=== PATIENT | male | born 2000 | race Caucasian/White ===

== ENCOUNTER 2019-01-21 01:08 | Day surgery (SDC) | payer BC ==
[2019-01-21] MEDS ORDERED: fentaNYL* 50 MCG/ML 2 ML VIAL (100 MCG VIAL) IV SLOW PU ONE (02:23)
[2019-01-21] MEDS ORDERED: Metoclopramide IV* 5 MG/ML 2 ML VIAL IV SLOW PU ONE (02:23)
[2019-01-21] MEDS ORDERED: NS 0.9% 1000 ML** 1,000 ML IV ONE (02:23)
--- NOTE | 2019-01-21 02:26 | ED ---
Abdominal Pain/Male - HPI Summary HPI Summary: Patient is a 18 y/o M presenting to ED with complaints of sharp lower abdominal pain that is more severe at the RLQ. He states that pain onset eight hours ago, he denies constipation, N/V/D. Pain is still present. PMHx of collapsed lung x2 , no FMHx of HTN or diabetes. On triage, pain is rated 7/10 and it is noted that he took pepto-bismol DIRECTOR NICU. Home medications and allergies are reviewed. - History of Current Complaint Chief Complaint: EDAbdPain Stated Complaint: "SEVERE ABD PAIN FOR 8+ HRS" PER PT Time Seen by Provider: 01/21/19 02:15 Hx Obtained From: Patient Onset/Duration: Lasting Hours - eight hours, Still Present Timing: Constant, Lasting Hours - eight hours Severity Currently: Severe - 7/10 Pain Intensity: 7 Pain Scale Used: 0-10 Numeric - 7/10 Location: Other - lower abd Aggravating Factor(s): Nothing Alleviating Factor(s): Nothing Associated Signs And Symptoms: Negative: Fever, Constipation, Nausea, Vomiting, Diarrhea - Allergies/Home Medications Allergies/Adverse Reactions: Allergies Allergy/AdvReac Type Severity Reaction Status Date / Time morphine Allergy Unknown Verified 01/21/19 01:17 Reaction Details Home Medications: Home Medications NK [No Home Medications Reported] 01/21/19 [History Confirmed 01/21/19] PMH/Surg Hx/FS Hx/Imm Hx Respiratory History: Reports: Other Respiratory Problems/Disorders - collapsed lung x2 Sensory History: Denies: Hx Legally Blind, Hx Deafness Opthamlomology History: Denies: Hx Legally Blind EENT History: Denies: Hx Deafness Infectious Disease History: No Infectious Disease History: Denies: Traveled Outside the [place] in Last 30 Days - Family History Known Family History: Negative: Hypertension, Diabetes - Social History Alcohol Use: None Substance Use Type: Reports: None Smoking Status (MU): Never Smoked Tobacco Review of Systems Negative: Fever Gastrointestinal: Other - NEGATIVE - CONSTIPATION Positive: Abdominal Pain. Negative: Vomiting, Diarrhea, Nausea All Other Systems Reviewed And Are Negative: Yes Physical Exam - Summary Physical Exam Summary: VITAL SIGNS: Reviewed. GENERAL: Patient is a well-developed and nourished male who is lying comfortable in the stretcher. Patient is not in any acute respiratory distress. HEAD AND FACE: No signs of trauma. No ecchymosis, hematomas or skull depressions. No sinus tenderness. EYES: PERRLA, EOMI x 2, No injected conjunctiva, no nystagmus. EARS: Hearing grossly intact. Ear canals and tympanic membranes are within normal limits. MOUTH: Oropharynx within normal limits. NECK: Supple, trachea is midline, no adenopathy, no JVD, no carotid bruit, no c- spine tenderness, neck with full ROM. CHEST: Symmetric, no tenderness at palpation LUNGS: Clear to auscultation bilaterally. No wheezing or crackles. CVS: Regular rate and rhythm, S1 and S2 present, no murmurs or gallops appreciated. ABDOMEN: Soft, RLQ tenderness. No signs of distention. No rebound no guarding, and no masses palpated. Bowel sounds are normal. EXTREMITIES: FROM in all major joints, no edema, no cyanosis or clubbing. NEURO: Alert and oriented x 3. No acute neurological deficits. Speech is normal and follows commands. SKIN: Dry and warm Triage Information Reviewed: Yes Vital Signs On Initial Exam: Initial Vitals Temp Pulse Resp BP Pulse Ox 98.9 F 59 16 136/86 99 01/21/19 01:16 01/21/19 01:16 01/21/19 01:16 01/21/19 01:16 01/21/19 01:16 Vital Signs Reviewed: Yes Diagnostics - Vital Signs Vital Signs Temp Pulse Resp BP Pulse Ox 01/21/19 01:16 98.9 F 59 16 136/86 99 - Laboratory Result Diagrams: 01/21/19 02:40 01/21/19 02:40 Lab Statement: Any lab studies that have been ordered have been reviewed, and results considered in the medical decision making process. - CT abd/pel ct CT Interpretation Completed By: Radiologist Summary of CT Findings: IMPRESSION: 1. Periportal edema. 2. Equivocal findings for acute appendicitis and clinical correlation is. advised. This report was reviewed by Dr. Gordon Re-Evaluation - Re-Evaluation First Eval Re-Evaluation Time: 05:24 Comment: Results of labs and tests were discussed. Upon re-examination, patient is noted to still have RLQ tenderness. Abdominal Pain Male Course/Dx - Course Course Of Treatment: Patient is a 18 y/o M presenting to ED with complaints of lower abdominal pain that is more severe at the RLQ. He states that pain onset eight hours ago, he denies constipation. Pain is still present. PMHx of collapsed lung x2, no FMHx of HTN or diabetes. On physical exam, RLQ tenderness is noted. CT ABD/PEL. IMPRESSION: 1. Periportal edema. 2. Equivocal findings for acute appendicitis and clinical correlation is. advised. Labs showed WBC 17.5, absolute neuts 15.3, absolute monos 0.9, glucose 112, CRP < 1, lipase < 10. UA showed 1+ ketones. During ED course, patient received fluids, reglan 10 mg IV, toradol 15 mg IV, and fentanyl 50 mcg IV SLOW PU. Patient's case was discussed with Dr. Lancaster at 0603. Dr. Lancaster will come to evaluate patient in ED. Patient is signed out to Dr. Montez at 0700 01/21/[address] Lancaster consult. - Diagnoses Provider Diagnoses: Abdominal pain - Provider Notifications Discussed Care Of Patient With: Angelo Lancaster Time Discussed With Above Provider: 06:03 Instructed by Provider To: Other - Patient's case was discussed with Dr. Lancaster at 0603. Dr. Lancaster will come to evaluate patient in ED. Discharge - Sign-Out/Discharge Documenting (check all that apply): Sign-Out Patient Signing out patient TO: Abdifatah Montez - Discharge Plan Referrals: Addie Villalta, HYDRAULIC TECHNICIAN [Primary Care Provider] - - Attestation Statements Document Initiated by Scribe: Yes Documenting Scribe: SACHA LOVE Provider For Whom Scribe is Documenting (Include Credential): MARYAM GORDON MD Scribe Attestation: ISACHA, scribed for MARYAM GORDON MD on 01/21/19 at 0632. Status of Scribe Document: Ready
[2019-01-21 02:48] LABS: ABS Basophils 0 10^3/ul (0-0.2); ABS Eosinophils 0.1 10^3/ul (0-0.6); ABS Lymphocytes 1.1 10^3/ul (1.0-4.8); ABS Monocytes 0.9 10^3/ul (0-0.8); ABS Neutrophils 15.3 10^3/ul (1.5-7.7); ABS Nucleated RBC 0 10^3/ul; Eosinophil % 0.5 %; Hematocrit 46 % (36-46); Lymphocyte % 6.4 %; Mean Corpuscular HGB Conc 35 g/dL (31-36); Mean Corpuscular Hemoglobin 31 pg (27-31); Mean Corpuscular Volume 89 fL (80-94); Mean Platelet Volume 8.2 fL (7.4-10.4); Nucleated Red Blood Cells % 0.1; Platelet Count 214 10^3/uL (150-450); Red Blood Count 5.15 10^6 /uL (4.18-5.48); Red Cell Distribution Width 14 % (10.5-15); White Blood Count 17.5 10^3/uL (3.5-10.8)
[2019-01-21 03:04] LABS: ALT 12 U/L (7-52); AST 18 U/L (13-39); Albumin 4.5 g/dL (3.2-5.2); Albumin/Globulin Ratio 2.3 (1-3); Alkaline Phosphatase 59 U/L (34-104); Amylase 36 U/L (29-103); Anion Gap 6 mmol/L (2-11); Blood Urea Nitrogen 12 mg/dL (6-24); C Reactive Protein < 1.00 mg/L (<8.01); CO2 Carbon Dioxide 28 mmol/L (22-32); Calcium 9.2 mg/dL (8.6-10.3); Chloride 104 mmol/L (101-111); EGFR African American 138.6 (>60); EGFR Non-African American 114.6 (>60); Glucose 112 mg/dL (70-100); Magnesium 2.1 mg/dL (1.9-2.7); Potassium 3.6 mmol/L (3.5-5.0); Sodium 138 mmol/L (135-145); Total Protein 6.5 g/dL (6.4-8.9)
[2019-01-21] MEDS ORDERED: Ketorolac INJ* 15 MG/ML 1 ML VIAL IV PUSH ONE (03:54)
[2019-01-21] MEDS ORDERED: Ketorolac INJ* 15 MG/ML 1 ML VIAL ONE (03:55)
[2019-01-21] MEDS ORDERED: Iohexol 300* (CONTRAST) 10 ML SDV IV ONE (04:37)
[2019-01-21 05:21] LABS: Urine Appearance Clear; Urine Bilirubin Negative (Negative); Urine Blood Negative (Negative); Urine Color Yellow; Urine Glucose Negative (Negative); Urine Ketones 1+ (Negative); Urine Nitrite Negative (Negative); Urine Protein Negative (Negative); Urine Specific Gravity 1.053 (1.010-1.030); Urine Urobilinogen Negative (Negative)
--- NOTE | 2019-01-21 07:16 | ED ---
Progress - Progress Note Progress Note: This patient was signed out from Dr. Gordon to Dr. Montez upon shift change at 07: 00 01/21/19 pending surgical consult with Dr. Lancaster. Case discussed with Dr. Lancaster who accepted the patient for admisison. Re-Evaluation - Re-Evaluation First Eval Re-Evaluation Time: 05:24 Comment: Results of labs and tests were discussed. Upon re-examination, patient is noted to still have RLQ tenderness. Course/Dx - Course Course Of Treatment: This patient was signed out from Dr. Gordon to Dr. Montez upon shift change at 07:00 01/21/19 pending surgical consult with Dr. Lancaster. Case discussed with Dr. Lancaster who accepted the patient for admisison. - Diagnoses Provider Diagnoses: Abdominal pain - Provider Notifications Discussed Care Of Patient With: Angelo Lancaster Time Discussed With Above Provider: 10:11 Instructed by Provider To: Admit As Inpatient Discharge - Sign-Out/Discharge Documenting (check all that apply): Patient Departure - admit All imaging exams completed and their final reports reviewed: Yes Patient Received Moderate/Deep Sedation with Procedure: No - Discharge Plan Condition: Fair Disposition: ADMITTED TO [facility] - Billing Disposition and Condition Condition: FAIR Disposition: Admitted to [facility] - Attestation Statements Document Initiated by Ezequiel: Yes Documenting Scribe: Magnus Robertson Provider For Whom Ezequiel is Documenting (Include Credential): Abdifatah Montez MD Scribe Attestation: Magnus Wilson, scribed for Abdifatah Montez MD on 01/22/19 at 0945. Scribe Documentation Reviewed: Yes Provider Attestation: The documentation as recorded by the Magnus gongora accurately reflects the service I personally performed and the decisions made by me, Abdifatah Montez MD Status of Scribe Document: Viewed
[2019-01-21] MEDS ORDERED: Ondansetron INJ* 2 MG/ML VIAL IV PRN (08:34)
[2019-01-21] MEDS ORDERED: Famotidine IV* 10 MG/ML 2 ML (20 mg) IV ONE (08:48)
[2019-01-21] MEDS ORDERED: Lactated Ringers 1000 ML Bag* 1,000 ML IV SCH (09:00)
[2019-01-21] MEDS ORDERED: Piperacillin/Tazobac ADVAN(*) 3.375 GM in NS 0.9% 100 ML* 100 ML IVPB SCH (09:00)
--- NOTE | 2019-01-21 10:23 | HP ---
CC: [facility]* HISTORY AND PHYSICAL: DATE OF ADMISSION: 01/21/19 CHIEF COMPLAINT: Abdominal pain. HISTORY OF PRESENT ILLNESS: Mr. Perez is a 18-year-old [employer] student who presented to the emergency room in the overnight period with complaints of diffuse abdominal pain. Workup in the emergency room including labs and CAT scan was consistent with appendicitis. Surgery was consulted. The patient described relatively acute onset of pain yesterday morning. It was accompanied with decreased appetite. He did not have any nausea or vomiting, but he did have diarrhea in the overnight period, relieved by narcotic and rest. No significant aggravating factors. The patient denies any previous similar symptoms. No fevers or chills. PAST MEDICAL HISTORY: Pneumothorax as a child. PAST SURGICAL HISTORY: Chest tube treatment for pneumothorax. MEDICATIONS: None. ALLERGIES: MORPHINE. FAMILY HISTORY: Noncontributory. No history of ulcerative colitis or Crohn's disease, or appendicitis. SOCIAL HISTORY: He is a nonsmoker, drinks occasionally. 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 He is from the [place] area. REVIEW OF SYSTEMS: No fevers, no chills. No significant weight loss. History of pneumothorax as described. No cardiac disease. No GERD like symptoms. No dysuria. Good exercise tolerance. No bleeding or clotting disorders. He has never had general anesthesia. No endocrine disorders, no psychiatric illnesses. No neurologic deficits. PHYSICAL EXAMINATION GENERAL: He is alert and oriented x3. No apparent distress. VITAL SIGNS: He is afebrile. Vital signs are stable. HEAD, EYES, EARS, NOSE and THROAT: Normocephalic, atraumatic. Sclerae anicteric. Mucous membranes are moist. NECK: No lymphadenopathy. LUNGS: Clear to auscultation bilaterally. ABDOMEN: Soft, nondistended. Mild tenderness in McBurney's point without rebound. No borborygmi. Negative psoas sign and negative Rovsing's sign. Abdomen shows no masses or lesions. EXTREMITIES: Within normal limits. RECTAL: Exam not performed. DIAGNOSTIC STUDIES/LAB DATA: Labs reviewed show white count elevated at 17.5 with no left shift. Chemistry panel, mildly elevated glucose. Urinalysis within normal limits. The patient underwent a CAT scan of the abdomen and pelvis. The images were reviewed. Due to paucity of fat I did not see any inflammatory changes. The radiologist read it as a mildly dilated appendix. No other findings noted. No free fluid. IMPRESSION: Otherwise healthy 18-year-old gentleman with diffuse abdominal pain now radiating into the right lower quadrant with anorexia who on CAT scan shows dilated appendix, according to Radiology whom I recommend diagnostic laparoscopy, appendectomy. PLAN/RECOMMENDATIONS: I outlined the details of procedure going over the risks , benefits, and alternatives. I discussed that it would possibly be my partner doing the procedure. The patient agrees to proceed. I have spoken to his family already. We will admit him for antibiotics and get him on the OR schedule. [id number]/CPS #: [id number] MTDD
[2019-01-21] MEDS ORDERED: ceFOXitin 2 GM IVPREMIX* 2 GM/50 ML BAG ONE (11:43)
[2019-01-21] MEDS ORDERED: Bupivacaine 0.25% W/EPI* 10 ML SDV ONE (11:54)
[2019-01-21] MEDS ORDERED: Midazolam* 1 MG/ML 5 ML VIAL (5 MG) ONE (12:07)
[2019-01-21] MEDS ORDERED: Rocuronium* 10 MG/ML VIAL ONE (12:12)
[2019-01-21] MEDS ORDERED: Propofol* 10 MG/ML 20 ML BTL ONE (12:12)
[2019-01-21] MEDS ORDERED: fentaNYL* 50 MCG/ML 5 ML VIAL (250 MCG VIAL) ONE (12:12)
[2019-01-21] MEDS ORDERED: Lidocaine 2% PF * 5 ML VIAL ONE (12:12)
[2019-01-21] MEDS ORDERED: Ondansetron INJ* 2 MG/ML VIAL ONE (12:26)
[2019-01-21] MEDS ORDERED: Dexamethasone IV* 4 MG/ML 1 ML (4 MG) ONE (12:26)
[2019-01-21] MEDS ORDERED: DiMENhydriNATE IV* 50 MG/ML VIAL IV PUSH PRN (12:32)
[2019-01-21] MEDS ORDERED: Acetaminophen TAB* 325 MG PO PRN (12:32)
[2019-01-21] MEDS ORDERED: Naloxone* 0.4 MG/ML 1 ML VIAL IV PRN (12:32)
[2019-01-21] MEDS ORDERED: Ketorolac INJ* 30 MG/ML 1 ML VIAL IV PRN (12:32)
[2019-01-21] MEDS ORDERED: HYDROcodone/ACETAMIN 5-325 MG* 1 TAB PO PRN (12:32)
[2019-01-21] MEDS ORDERED: fentaNYL* 50 MCG/ML 2 ML VIAL (100 MCG VIAL) IV PRN (12:32)
[2019-01-21] MEDS ORDERED: Glycopyrrolate IV* 0.2 MG/ML 1 ML VIAL ONE (12:45)
[2019-01-21] MEDS ORDERED: Neostigmine Methylsulfate* 3 MG/3 ML SYRINGE ONE (12:45)
[2019-01-21 15:04] VITALS: BP 123/77
--- NOTE | 2019-01-21 22:38 | OP ---
CC: [facility] * DATE OF OPERATION: 01/21/19 - [facility] DATE OF : 89 SURGEON: Dr. Calvin Hurtado. WILDLIFE ENFORCEMENT MAJOR: None. ANESTHESIOLOGIST: Dr. Olmedo. ANESTHESIA: General anesthetic, local infiltration. PRE-OP DIAGNOSIS: Appendicitis. POST-OP DIAGNOSIS: Appendicitis. OPERATIVE PROCEDURE: Laparoscopic appendectomy. DESCRIPTION OF PROCEDURE: The patient was supine on the operating room table. After adequate general anesthetic, compression stockings, Lorenzo Hugger warmer, and intravenous antibiotics, the abdomen was prepped with antiseptic and draped in a sterile fashion. Local infiltrative anesthesia was administered. A small umbilical incision was created. Blunt port cannula was placed. Insufflation was carried out with carbon dioxide. Additional cannulae, 5 mm left lower quadrant and left mid abdomen, were placed through small stab wounds under direct vision. He had evidence of early acute appendicitis. The distal half of the appendix was swollen and inflamed, but there was no evidence of gangrene or rupture. The base of the appendix was not inflamed. The appendix was tented upward and a window created adjacent to the mesentry. Mesentery was divided with an EndoGIA stapler with a campos load and the base of the appendix with a weathers load. Appendix was placed in a retrieval bag and brought out through the umbilical site. The operative field was examined. The hemostasis was good. The cannulae were removed. Pneumoperitoneum allowed to escape. Umbilical fascia was closed with 0 Vicryl and skin with 5-0 Vicryl, followed by Steri- Strips. He tolerated the procedure well, was awakened, and extubated and brought to recovery in good condition. COMPLICATIONS: No complications. DRAINS: No drains. SPECIMEN: Pathologic specimen was appendix. COUNTS: Sponge and instrument counts correct. ESTIMATED BLOOD LOSS: Less than 10 mL. [id number]/[facility] #: [id number] [facility]
== END 2019-01-21 09:19 | disposition home or self-care (01) ==
LOC: ED 01:08 → SDS 09:19
PROVIDERS: ATTEND Surgery
DX: K35.80 Unspecified acute appendicitis (principal); R10.31 Right lower quadrant pain; J45.909 Unspecified asthma, uncomplicated
CPT/HCPCS: 36415; 74177; 80053; 81003; 82150; 83690; 83735; 85025; 86140; 88304; 99284; J0694; J1100; J1885; J2250; J2405; J2543; J2704; J2710; J2765; J3010; Q9967